=== PATIENT | female | born 1995 | race African-American/Black ===

== ENCOUNTER 2022-10-08 15:46 | Emergency (ER) | payer OTHER ==
--- OUTSIDE RECORDS SUMMARY | 2022-10-08 16:02 | XMS REPORT | Continuity of Care Document ---
:1995 Author Organization [facility] t Address [address] [facility] [address] [place] [address] Care Team Providers Name Role Phone HALLE AHUJA Primary Care Physician Unavailable EMMA ROSALES Attending Clinician Unavailable HALLE AHUJA Attending Clinician Unavailable [facility] Attending Clinician [phone] [facility] Attending Clinician Unavailable Emma Fine Attending Clinician JIGNESH ANDERSON Attending Clinician Unavailable Casimiro Mcrae MD Attending Clinician [phone] Say Cobb MD Attending Clinician Chanelle Bundy MD Attending Clinician LILLIAM ZURITA Attending Clinician Unavailable LILLIAM ZURITA Attending Clinician Unavailable Provider, Flaco Temp Attending Clinician Unavailable Doctor Unassigned, [place] Attending Clinician Unavailable PAMELA CROW Attending Clinician Unavailable KEITH ZHU Attending Clinician Unavailable Ultrasound, Vinicioshruti Attending Clinician Unavailable Keith Zhu MD Attending Clinician MASSIEL PRESTON Attending Clinician Unavailable MASSIEL PRESTON Attending Clinician Unavailable Massiel Preston MD Attending Clinician Airam Eubanks NP Attending Clinician AIRAM EUBANKS Attending Clinician Unavailable JIGNESH ANDERSON Admitting Clinician Unavailable AIRAM EUBANKS Admitting Clinician Unavailable Payers Payer Name Policy Type Policy Number Effective Date Expiration Date Alirio pérez [facility] MARVEL [id number] 2021 00:00:00 MEDICAID PENDING PENDING 2021 00:00:00 [place] [id number] 2018 OUT OF STATE 00:00:00 Problems Condition Condition Condition Status Onset Resolution Last Treating Co mments Source Name Details Category Date Date Treatment Clinician Date Disease Active U nivers care and care and 9-08 ity of exam[place] of Medical lactating lactating Bran ch mother mother Acute Acute Disease Active Univers anemia anemia 8-18 ity of 00:00: [place] [address] Medical Branch Underweigh Underweigh Disease Active 2020-03 U nivers t t 2-20 ity of 00:00: [address] Allergies, Adverse Reactions, Alerts Allergy Allergy Status Severity Reaction(s) Onset Inactive Treating Comm ents Source Name Type Date Date Clinician NO KNOWN Drug Active Univers ALLERGIE Class ity of S [facility] Social History Social Habit Start Date Stop Date Quantity Comments Source Exposure to 2021-11-06 2021-11-16 Not sure [facility] SARS-CoV-2 00:00:00 13:07:00 [facility] (event) [place] Alcohol intake 2021-11-16 2021-11-16 Ex-drinker [facility] 00:00:00 00:00:00 (finding) [facility] Tobacco use and 2021-09-19 2021-09-19 Smokeless tobacco Un iversity of exposure 00:00:00 00:00:00 non-user [facility] Sex Assigned At [birth year] Universit y of 00:00:00 00:00:00 [facility] Smoking Status Start Date Stop Date Source Never smoked tobacco [facility] Medications Ordered Filled Start Stop Current Ordering Indication Dosage Frequency Signature Comments Components Source Medication Medication Date Date Medication? Clinician (SIG) Name Name ascorbic Yes [id number] 500mg Take 1 U nivers acid, 8-17 tablet by ity of vitamin C, 00:00: mouth in [place] 500 mg 00 the Medical tablet morning Branch and 1 tablet in the evening. foLIC acid Yes [id number] 1mg Take 1 Univers 1 mg tablet 8-17 tablet by ity of 00:00: mouth in [place] 00 the Medical morning. Branch Yes [id number] 1{tbl} Take 1 Univers vitamin 8-17 tablet by ity of w/FA tablet 00:00: mouth in [place] 00 the Medical morning. Branch docusate Yes [id number] 200mg Take 2 U nivers 100 mg 8-17 capsules ity of capsule 00:00: by mouth [place] 00 once daily Medical as needed Branch for Constipati on. ferrous Yes [id number] 325mg Take 1 Un noam sulfate 325 8-17 tablet by ity of mg (65 mg [facility]00: [facility] Medical tablet morning Branch and 1 tablet in the evening. ibuprofen Yes [id number] 600mg Take 1 Univers 600 mg 8-17 tablet by ity of tablet 00:00: mouth [place] 00 every 6 Medical (six) Branch hours as needed (Pain). Take with food or milk. Immunizations Ordered Filled Immunization Date Status Comments [facility] e Immunization Name Name TDAP 2021-08-08 Completed [facility] 00:00:00 [facility] SARS-COV-2 COVID-19 2020-12-27 Completed Unive rsity of PFIZER VACCINE 00:00:00 [facility] SARS-COV-2 COVID-19 2020-12-06 Completed Unive rsity of PFIZER VACCINE 00:00:00 [facility] Vital Signs Vital Name Observation Time Observation Value Comments Source Systolic blood 2021-11-16 18:09:00 125 mm[Hg] Univer sity of pressure [facility] Diastolic blood 2021-11-16 18:09:00 67 mm[Hg] Unive rsity of pressure [facility] Heart rate 2021-11-16 18:09:00 88 /min [facility] Body temperature 2021-11-16 18:09:00 36.39 Vera [facility] Respiratory rate 2021-11-16 18:09:00 18 /min [facility] Body height 2021-11-16 18:09:00 167.6 cm [facility] Body weight 2021-11-16 18:09:00 64.184 kg [facility] BMI 2021-11-16 18:09:00 22.84 kg/m2 [facility] Procedures This patient has no known procedures. Encounters Start End Encounter Admission Attending Care Care Encounter Source Date/Time Date/Time Type Type Clinicians Facility Department ID 2021-12-07 2021-12-07 Outpatient Tony ROSALES [facility] [id number] Univers 12:45:00 12:45:00 EMMA grey lewis [facility] 2021-12-07 2021-12-07 Outpatient Tony ROSALES [facility] [id number] Univers 12:45:00 12:45:00 EMMA grey [facility] 2021-11-16 2021-11-16 Outpatient Tony AHUJA [facility] [id number] Univers 13:15:00 13:31:23 HALLE grey [facility] 2021-11-16 2021-11-16 Routine Seymour, [facility] [id number] Univers 13:15:00 13:31:23 Halle Salazar LADLE POURER 350.1.13.10 ity of Visit [facility] [id number] Solitario as MATERNAL [id number] [facility] & CHILD [address] [place] [address] 2021-10-31 2021-10-31 Nurse Visit, [facility] Nurse [facility] 1.2 .840.114 [id number] Univers 08:30:00 09:16:47 Visit Emma Rosales LADLE POURER [id number] ity of REGIONAL [id number] Solitario as MATERNAL [id number] [facility] & CHILD [address] [place] [address] 2021-10-31 2021-10-31 Outpatient Tony ROSALES [facility] [id number] Univers 08:30:00 08:30:00 EMMA grey [facility] 2021-10-22 2021-10-26 Inpatient Linda ANDERSON [facility] SAMMY [id number] Univers 14:47:00 15:07:00 JIGNESH ity of [facility] 2021-10-22 2021-10-26 Hospital [facility] 1 .2.840.114 [id number] Univers 14:47:00 15:07:00 Encounter Jignesh Anderson [id number] ity [facility] [id number] Solitario as [phone] [facility] 134 [place] 2021-10-24 2021-10-24 Surgery ANISH Mcrae 1.2.840.114 [id number] Univers 10:05:00 11:50:00 Casimiro HERNANDEZ 350.1.13.10 it y [facility] 4.2.7.2.686 [place] [phone] [facility] 013 [place] 2021-10-23 2021-10-24 Anesthesia Say Cobb 1.2.840.114 [id number] Univers 21:25:00 11:32:00 Event Chanelle Bundy 350.1.13.10 ity [facility] 4.2.7.2.686 Solitario as [phone] [address] 2021-10-24 2021-10-24 Outpatient R CONNIE [facility] [id number] Univers 11:00:00 11:00:00 ROSFEDERICOA rashardy o f [facility] 2021-10-17 2021-10-17 [facility] 1.2.840.114 [id number] Univers 08:15:00 08:30:00 Acenda R LADLE POURER 350.1.13.10 ity of Visit [facility] [id number] Solitario as MATERNAL [id number] [facility] ical & CHILD [address] [place] [address] 2021-10-17 2021-10-17 Outpatient R CONNIE [facility] [id number] Univers 08:15:00 08:15:00 ROSFEDERICOA ity o f [facility] 2021-10-10 2021-10-10 [facility] 1.2.840.114 [id number] Univers 12:45:00 13:00:00 Roshunda R LADLE POURER 350.1.13.10 ity of Visit REGIONAL 4.2.7.2.686 Solitario as MATERNAL [phone] [facility] & [address] 2021-10-10 2021-10-10 Outpatient R CONNIE [facility] [id number] Univers 12:45:00 12:45:00 ROSHUNDA ity o [facility] 2021-10-10 2021-10-10 [facility] [id number] Univers 12:45:00 12:45:00 ROSCYNDYNDA ity o [facility] 2021-10-04 2021-10-04 Telephone [facility] [id number] Univers 00:00:00 00:00:00 Roscyndynda R LADLE POURER 350.1.13.10 ity of REGIONAL 4.2.7.2.686 Solitario as MATERNAL [id number] [facility] & [address] 2021-10-03 2021-10-03 [facility] [id number] Univers 10:45:00 11:16:50 ACENDA rashardy o [facility] 2021-10-03 2021-10-03 [facility] 1.2.840.114 [id number] Univers 10:45:00 11:16:50 Roshunda R LADLE POURER 350.1.13.10 ity of Visit REGIONAL 4.2.7.2.686 Solitario as MATERNAL [id number] [facility] & [address] 2021-10-03 2021-10-03 [facility] [id number] Univers 10:45:00 11:16:50 ROSHUNDA ity o [facility] 2021-10-03 2021-10-03 [facility] [id number] Univers 10:45:00 10:45:00 ROSHUNDA ity o [facility] 2021-09-20 2021-09-20 Outpatient LILLIAM KAMARA [facility] [id number] Univers 10:45:00 10:45:00 LILLIAM ZURITA [facility] 2021-09-19 2021-09-19 Outpatient R LILLIAM ZURITA [facility] [id number] Univers 10:45:00 11:46:36 LILLIAM ZURITA [facility] 2021-09-19 2021-09-19 Routine Provider, [facility] 1 .2.840.114 [id number] Univers 10:45:00 11:46:36 Lilliam Zurita Maria Luisa LADLE POURER 350.1.13.10 ity of Visit REGIONAL 4.2.7.2.686 Solitario as MATERNAL [id number] [facility] ical & CHILD [address] [place] [address] 2021-09-05 2021-09-05 Routine [facility] 1.2.840.114 [id number] Univers 10:45:00 11:00:00 Roshunda R LADLE POURER 350.1.13.10 ity of Visit [facility] [id number] Solitario as MATERNAL [id number] [facility] ical & CHILD [address] [place] [address] 2021-09-05 2021-09-05 [facility] [id number] Univers 10:45:00 10:45:00 ROSHUNDA ity o [facility] 2021-08-22 2021-08-22 Outpatient Tony ROSALES [facility] [id number] Univers 08:00:00 08:37:40 ROSHUNDA ity o f [facility] 2021-08-22 2021-08-22 [facility] 1.2.840.114 [id number] Univers 08:00:00 08:37:40 Roshunda R LADLE POURER 350.1.13.10 ity of Visit REGIONAL [id number] Solitario as MATERNAL [phone] [facility] & CHILD [address] [place] [address] 2021-08-08 2021-08-08 [facility] [id number] Univers 08:00:00 08:52:58 ROSHUNDA ity o f [facility] 2021-08-08 2021-08-08 Routine [facility] 1.2.840.114 [id number] Univers 08:00:00 08:52:58 Roshunda R LADLE POURER 350.1.13.10 ity of Visit REGIONAL [id number] Solitario as MATERNAL [id number] Med ical & CHILD [address] [place] [address] 2021-08-08 2021-08-08 Outpatient R CONNIE [facility] [id number] Univers 08:00:00 08:00:00 ROSHUNDA ity o f [facility] 2021-07-28 2021-07-28 Orders Doctor ANISH 1.2.840.114 [id number] Univers 00:00:00 00:00:00 Only Unassigned, DAVID 350.1.13.10 ity of [place] [facility] 4.2.7.2.686 Solitario as [phone] [address] 2021-07-20 2021-07-20 Outpatient R PAMELA CROW [facility] [id number] Univers 10:00:00 10:00:00 ity of [facility] 2021-07-19 2021-07-19 Telephone [facility] [id number] Univers 00:00:00 00:00:00 Roshunda R LADLE POURER 350.1.13.10 ity of REGIONAL 4.2.7.2.686 Solitario as MATERNAL [id number] [facility] ica & CHILD [address] [place] [address] 2021-07-18 2021-07-18 Outpatient R CONNIE [facility] [id number] Univers 08:45:00 09:20:22 ROSHUNDA ity o f [facility] 2021-07-18 2021-07-18 Routine [facility] 1.2.840.114 [id number] Univers 08:45:00 09:20:22 Roshunda R LADLE POURER 350.1.13.10 ity of Visit [facility] [id number] Solitario as MATERNAL [id number] [facility] ical & CHILD [address] [place] [address] 2021-07-18 2021-07-18 [facility] [id number] Univers 08:45:00 08:45:00 EMMA mckenna o lewis [facility] 2021-06-22 2021-06-22 Orders Doctor ANISH 1.2.840.114 [id number] Univers 00:00:00 00:00:00 Only Unassigned, DAVID 350.1.13.10 ity of [place] [facility] 4.2.7.2.686 Solitario as [id number] [address] 2021-06-20 2021-06-20 [facility] [id number] Univers 09:30:00 09:58:01 EMMA mckenna o lewis [facility] 2021-06-20 2021-06-20 [facility] 1.2.840.114 [id number] Univers 09:30:00 09:58:01 Lilliannava R LADLE POURER 350.1.13.10 ity of Visit REGIONAL 4.2.7.2.686 Solitario as MATERNAL [id number] Med ical & CHILD [address] [place] [address] 2021-06-20 2021-06-20 [facility] [id number] Univers 08:15:00 08:15:00 ACEKOFIGrieclda saucedo [facility] 2021-06-12 2021-06-12 [facility] [id number] Univers 08:00:00 09:47:43 KEITH mckenna [facility] 2021-06-12 2021-06-12 Vendor Relationship Manager [facility]trasound[facility] 1.2 .840.114 [id number] Univers 08:00:00 09:00:00 Visit AudraKeith Tony LADLE POURER 350.1.13.10 ity of REGIONAL 4.2.7.2.686 Solitario as MATERNAL [id number] Med ical & CHILD [address] [facility] 2021-06-12 2021-06-12 Outpatient P [facility] [id number] Univers 08:00:00 08:00:00 ity [facility] 2021-05-23 2021-05-23 Routine [facility] 1.2.840.114 [id number] Univers 10:30:00 10:45:00 Roshunda R LADLE POURER 350.1.13.10 ity of Visit REGIONAL 4.2.7.2.686 Solitario as MATERNAL [phone] [facility] & CHILD [address] [place] [address] 2021-05-23 2021-05-23 Outpatient R CONNIE [facility] [id number] Univers 10:30:00 10:30:00 ROSCYNDYNDA ity o f [facility] 2021-04-25 2021-04-25 Outpatient R CONNIE [facility] [id number] Univers 10:30:00 11:05:58 ROSNDA itgautam o f [facility] 2021-04-25 2021-04-25 Routine Connie [facility] 1.2.840.114 [id number] Univers 10:30:00 11:05:58 Roshunda R LADLE POURER 350.1.13.10 ity of Visit REGIONAL 4.2.7.2.686 Solitario as MATERNAL [id number] [facility] & CHILD [address] [place] [address] 2021-04-03 2021-04-03 Outpatient P MASSIEL PRESTON [facility] [id number] Univers 09:00:00 09:32:53 MASSIEL PRESTON [facility] 2021-04-03 2021-04-03 Vendor Relationship Manager Ultrasound, [facility] 1.2 .840.114 [id number] Univers 09:00:00 09:30:00 Visit Massiel Preston LADLE POURER 350.1.13.10 ity of REGIONAL 4.2.7.2.686 Solitario as MATERNAL [id number] [facility] & CHILD [address] [place] [address] 2021-04-03 2021-04-03 Hillary Rosales [facility] 1.2.840.114 [id number] Univers 00:00:00 00:00:00 Roshunda R LADLE POURER 350.1.13.10 ity of REGIONAL 4.2.7.2.686 Solitario as MATERNAL [id number] [facility] & CHILD [address] [place] [address] 2021-03-28 2021-03-28 Outpatient Tnoy ROSALES [facility] [id number] Univers 10:15:00 10:40:46 EMMA mckenna o [facility] 2021-03-28 2021-03-28 Routine Halle Ahuja [facility] [id number] [id number] Univers 10:15:00 10:40:46 Lillian Rosalesnava R LADLE POURER 350.1.13.1 0 ity of Visit REGIONAL 4.2.7.2.686 Solitario as MATERNAL [id number] [facility] ical & CHILD [address] [place] [address] 2021-03-28 2021-03-28 Outpatient Tony ROSALES [facility] [id number] Univers 10:15:00 10:15:00 LILLIANNAVA grey [facility] 2021-03-28 2021-03-28 Outpatient Tony ROSALES [facility] [id number] Univers 10:15:00 10:15:00 LILLIANNAVA grey [facility] 2021-03-08 2021-03-08 Telephone [facility] [id number] Univers 00:00:00 00:00:00 Lilliannava R LADLE POURER 350.1.13.10 ity of REGIONAL 4.2.7.2.686 Solitario as MATERNAL [id number] [facility] & [address] 2021-03-06 2021-03-06 [facility] [id number] Univers 00:00:00 00:00:00 Lilliancyndynda R LADLE POURER 350.1.13.10 ity of REGIONAL 4.2.7.2.686 Solitario as MATERNAL [id number] [facility] & CHILD [address] [place] [address] 2021-02-27 2021-02-27 Outpatient Tony ROSALES [facility] [id number] Univers 09:15:00 11:56:21 EMMA mckenna o [facility] 2021-02-27 2021-02-27 Outpatient Tony ROSALES [facility] [id number] Univers 09:45:00 11:56:08 EMMA grey [facility] 2021-02-27 2021-02-27 Initial Connie [facility] 1.2.840.114 [id number] Univers 09:45:00 11:56:08 Roshunda R LADLE POURER 350.1.13.10 ity of Visit [facility] 4.2.7.2.686 Solitario as MATERNAL [id number] Med ical & CHILD [address] [place] [address] 2021-02-27 2021-02-27 Orders Doctor ANISH 1.2.840.114 [id number] Univers 00:00:00 00:00:00 Only Unassigned, DAVID 350.1.13.10 ity of [place] [facility] 4.2.7.2.686 Solitario as [phone] [facility] 009 Branch 2020-03-10 2020-03-10 Emergency [facility] [id number] [id number] Univers 13:11:00 17:48:00 Airam Jacob 350.1.13.10 ity of [place] 4.2.7.2.686 [place] [facility] [phone] [facility] 084 Branch 2020-03-10 2020-03-10 Emergency X [facility] ERT [id number] Univers 13:11:00 17:48:00 AIRAM mckenna of [facility] Results This patient has no known results.
[2022-10-08 17:58] LABS: Specific Gravity > 1.030 (1.005-1.030)
[2022-10-08 18:01] LABS: Specific Gravity > 1.030 (1.005-1.030); Urine Bacteria <20 /HPF (<20); Urine Bilirubin NEGATIVE (Negative); Urine Blood Negative (Negative); Urine Clarity Extremely Turbid (Clear); Urine Color Yellow (Yellow); Urine Glucose NEGATIVE (Negative); Urine Mucus 4+ /HPF (None Seen); Urine Protein 1+ (Negative); Urine RBC <5 /HPF (None Seen); Urine Urobilinogen Normal (Normal); Urine pH 5.5 (5.0-7.0)
[2022-10-08 18:21] LABS: Absolute Lymphocytes (CBC) 1.8 K/uL (0.7-4.9); Hematocrit 36.8 % (36.0-45.0); Lymphocytes % 53.5 % (15.3-44.8); MCV 85.9 fL (80-100); RBC Red Blood Cell Count 4.28 M/uL (3.86-4.86)
[2022-10-08 18:39] LABS: Albumin 4.1 g/dL (3.4-5.0); Bilirubin Total 0.9 mg/dL (0.2-1.0); Potassium 3.8 mEq/L (3.5-5.1); Protein, Total 7.9 g/dL (6.4-8.2)
--- NOTE | 2022-10-08 18:50 | ER ---
Nurse's Notes [facility] Name: Venu Fountain Age: 27 yrs Sex: Female : 1995 Arrival Date: 10/08/2022 Time: 15:46 Bed 15 Private MD: Diagnosis: Lower abdominal pain, unspecified Presentation: 10/08 16:00 Chief complaint: Patient states: LLQ abdominal cramping X2 weeks and also reports black cm10 stools for the last 2 days. Pt states no BM today. Coronavirus screen: Vaccine status: Patient reports receiving the 2nd dose of the covid vaccine. Ebola Screen: No symptoms or risks identified at this time. Initial Sepsis Screen: Does the patient meet any 2 criteria? No. Patient's initial sepsis screen is negative. Does the patient have a suspected source of infection? No. Patient's initial sepsis screen is negative. Risk Assessment: Do you want to hurt yourself or someone else? Patient reports no desire to harm self or others. Onset of symptoms was October 08, 2022. 16:00 Method Of Arrival: Ambulatory cm10 16:00 Acuity: DEIDRE 3 cm10 Historical: - Allergies: 16:03 No Known Allergies; cm10 - Home Meds: 16:03 None [Active]; cm10 - PMHx: 16:03 None; cm10 - PSHx: 16:03 section; cm10 - Immunization history:: Adult Immunizations unknown. - Social history:: Smoking status: Patient denies any tobacco usage or history of. Screenin:30 [facility] ED Fall Risk Assessment (Adult) History of falling in the last 3 months, ko1 including since admission No falls in past 3 months (0 pts) Confusion or Disorientation No (0 pts) Intoxicated or Sedated No (0 pts) Impaired Gait No (0 pts) Mobility Assist Device Used No (0 pt) Altered Elimination No (0 pt) Score/Fall Risk Level 0 - 2 = Low Risk Oriented to surroundings, Maintained a safe environment, Educated pt \T\ family on fall prevention, incl call for assistance when getting out of bed, Assessed \T\ reinforced patient's understanding of fall precautions, Provided non-skid footwear, Hourly rounding (assess needs \T\ fall precautionary measures) done, Used ambulatory aids as needed (educated on \T\ assisted with). Abuse screen: Denies threats or abuse. Denies injuries from another. Nutritional screening: No deficits noted. Tuberculosis screening: No symptoms or risk factors identified. Assessment: 17:30 General: Appears in no apparent distress. comfortable, Behavior is calm, cooperative, ko1 appropriate for age. Pain: Complains of pain in abdomen. Neuro: No deficits noted. Cardiovascular: No deficits noted. Respiratory: No deficits noted. GI: Bowel sounds present X 4 quads. Abd is soft and non tender X 4 quads. : No deficits noted. EENT: No deficits noted. Derm: No deficits noted. Musculoskeletal: No deficits noted. Vital Signs: 16:00 BP 123 / 67; Pulse 77; Resp 18; Temp 98.4(O); Pulse Ox 100% ; Weight 58.97 kg; Height 5 cm10 ft. 7 in. ; Pain 0/10; 18:55 BP 118 / 64; Pulse 72; Resp 16; Pulse Ox 100% ; ko1 16:00 Body Mass Index 20.36 (58.97 kg, 170.18 cm) cm10 16:00 Pain Scale: Adult cm10 ED Course: 15:47 Patient arrived in ED. am2 15:51 Dana Simmons FNP-C [facility] kb 15:51 Aaron Pabon MD is Attending Physician. kb 16:03 Triage completed. cm10 16:03 Arm band placed on Patient placed in waiting room. cm10 17:22 Melissa Paulino, REINA is Primary Nurse. ko1 17:30 Patient has correct armband on for positive identification. Bed in low position. Call ko1 light in reach. Provided Education on: NA. Pulse ox on. NIBP on. Door closed. Noise minimized. 17:30 No provider procedures requiring assistance completed. ko1 18:00 Inserted saline lock: 22 gauge in left antecubital area, using aseptic technique. Blood ko1 collected. 18:10 CBC with Diff Sent. ko1 18:10 CMP Sent. ko1 18:10 Lipase Sent. ko1 18:55 IV discontinued, intact, bleeding controlled, No redness/swelling at site. Pressure ko1 dressing applied. Administered Medications: No medications were administered Medication: 17:30 VIS not applicable for this client. ko1 Outcome: 18:49 Discharge ordered by . kb 19:14 Discharged to home ambulatory, with family. ko1 19:14 Condition: stable 19:14 Discharge instructions given to patient, Instructed on discharge instructions, follow up and referral plans. Demonstrated understanding of instructions, follow-up care. 19:15 Patient left the ED. ko1 Signatures: Dana Simmons, CLOUD OPERATIONS ENGINEER-C CLOUD OPERATIONS ENGINEER-CkDana Swift am2 Melissa Paulino, RN RN ko1 Asia Hernandez RN RN cm10 Corrections: (The following items were deleted from the chart) 19:15 17:30 BP 118 / 64; Pulse 72bpm; Resp 16bpm; Pulse Ox 100%; ko1 ko1
--- NOTE | 2022-10-08 18:50 | EDPHYS ---
Physician Documentation [facility] Name: Venu Fountain Age: 27 yrs Sex: Female : 1995 Arrival Date: 10/08/2022 Time: 15:46 Bed 15 Private MD: ED Physician Aaron Pabon HPI: 10/08 16:04 This 27 yrs old Black Female presents to ER via Ambulatory with complaints of kb Black/Tarry Stools, Abdominal Pain - low. 16:04 The patient presents with abdominal pain in the lower abdomen. Onset: The kb symptoms/episode began/occurred 2 week(s) ago. The symptoms do not radiate. Associated signs and symptoms: Pertinent positives: dark stool, Pertinent negatives: nausea, vomiting, and diarrhea. The symptoms are described as crampy. Modifying factors: The symptoms are alleviated by nothing, the symptoms are aggravated by nothing. Severity of pain: At its worst the pain was mild in the emergency department the pain is unchanged. The patient has not experienced similar symptoms in the past. The patient has not recently seen a physician. Patient presents for abdominal cramps that started 2 weeks ago. States she had some spotting onset of cramping and thought that it was her menstrual cycle but her period never came and the cramps continued. Reports black stools over the past 2 days. Denies fever, nausea, vomiting, diarrhea, constipation. Historical: - Allergies: 16:03 No Known Allergies; cm10 - Home Meds: 16:03 None [Active]; cm10 - PMHx: 16:03 None; cm10 - PSHx: 16:03 section; cm10 - Immunization history:: Adult Immunizations unknown. - Social history:: Smoking status: Patient denies any tobacco usage or history of. ROS: 16:04 Constitutional: Negative for fever, chills, and weight loss. kb 16:04 Abdomen/GI: Positive for abdominal pain, black/tarry stool. 16:04 All other systems are negative. Exam: 16:04 Constitutional: This is a well developed, well nourished patient who is awake, alert, kb and in no acute distress. Head/Face: Normocephalic, atraumatic. ENT: Moist Mucous membranes Cardiovascular: Regular rate and rhythm with a normal S1 and S2. No gallops, murmurs, or rubs. No pulse deficits. Respiratory: Respirations even and unlabored. No increased work of breathing. Talking in full sentences Abdomen/GI: Soft, non-tender. No distention Skin: Warm, dry with normal turgor. Normal color. MS/ Extremity: Pulses equal, no cyanosis. Neurovascular intact. Full, normal range of motion. Neuro: Awake and alert, GCS 15, oriented to person, place, time, and situation. Moves all extremities. Normal gait. Vital Signs: 16:00 BP 123 / 67; Pulse 77; Resp 18; Temp 98.4(O); Pulse Ox 100% ; Weight 58.97 kg; Height 5 cm10 ft. 7 in. ; Pain 0/10; 18:55 BP 118 / 64; Pulse 72; Resp 16; Pulse Ox 100% ; ko1 16:00 Body Mass Index 20.36 (58.97 kg, 170.18 cm) cm10 16:00 Pain Scale: Adult cm10 MDM: 15:58 Patient medically screened. 16:06 Data reviewed: vital signs, nurses notes. kb 18:30 Differential diagnosis: GI Bleed, non-specific abd pain, urinary tract infection. kb 18:49 Counseling: I had a detailed discussion with the patient and/or guardian regarding: the historical points, exam findings, and any diagnostic results supporting the discharge/admit diagnosis, lab results, radiology results, the need for outpatient follow up, a family practitioner, a ice guard inspector, an OB/Gyne specialist, to return to the emergency department if symptoms worsen or persist or if there are any questions or concerns that arise at home. 18:49 I considered the following discharge prescriptions or medication management in the emergency department Antibiotics: At this time antibiotics are not recommended. Test considered but Not performed: CT: CT abd considered, but pt has no abd tenderness, cramping has been ongoing for 2 weeks, afebrile and nontoxic in appearance. Educated on return precautions. Special discussion: Based on the patient's Hx, exam, and Dx evaluation, there is no indication for emergent surgery or inpatient Tx. It is understood by the patient/guardian that if the Sx's persist or worsen they need to return immediately for re-evaluation. 10/08 16:02 Order name: CBC with Diff; Complete Time: 18:28 kb 10/08 16:02 Order name: CMP; Complete Time: 18:45 kb 10/08 16:02 Order name: Lipase; Complete Time: 18:45 kb 10/08 16:02 Order name: Test, Urine; Complete Time: 18:04 kb 10/08 16:02 Order name: Urinalysis w/ reflexes; Complete Time: 18:04 kb 10/08 16:02 Order name: IV Saline Lock; Complete Time: 18:10 kb 10/08 16:02 Order name: Labs collected and sent; Complete Time: 18:10 kb Administered Medications: No medications were administered Disposition: 19:25 I reviewed the patient's care provided by the Advanced Practice Provider and agree with jrJoseline the diagnosis and treatment plan. Disposition Summary: 10/08/22 18:49 Discharge Ordered Location: Home kb Condition: Stable kb Diagnosis - Lower abdominal pain, unspecified kb Followup: kb - With: Emergency Department - When: As needed - Reason: Worsening of condition Followup: kb - With: Private Physician - When: 2 - 3 days - Reason: Recheck today's complaints, Continuance of care, Re-evaluation by your physician Discharge Instructions: - Discharge Summary Sheet kb - Pelvic Pain, Female, [id number] kb - Abdominal Pain, Adult, [id number] kb Forms: - Medication Reconciliation Form kb - Thank You Letter kb - Antibiotic Education kb - Prescription Opioid Use kb - Patient Portal Instructions kb Signatures: Dispatcher [employer] Dana Mcdonald, TRY ON BASTER-C TRY ON BASTER-Aaron Riggins MD MD [email or web address] sAia Hernandez RN RN cm10
[2022-10-08 19:56] VITALS: TEMP 98.4; O2SAT 100
[2022-10-08 20:06] VITALS: BP 118/64
== END 2022-10-08 19:15 | disposition home or self-care (01) ==
LOC: ER 15:46
DX: R10.30 Lower abdominal pain, unspecified (principal)
CPT/HCPCS: 36415; 80053; 81001; 81025; 83690; 85025; 99284

== ENCOUNTER 2023-12-09 09:21 | Emergency (ER) | payer OTHER ==
--- NOTE | 2023-12-09 09:55 | EDPHYS ---
Physician Documentation [facility] Name: Venu Fountain Age: 28 yrs Sex: Female : 1995 Arrival Date: 12/09/2023 Time: 09:21 Bed IW1 Private MD: ED Physician Tylor Knight HPI: 12/08 10:48 This 28 yrs old Black Female presents to ER via Ambulatory with complaints of Rash. ms3 10:48 28-year-old female with no past medical history presents to the emergency department ms3 for rash on left second digit that was noticed today while sleeping. Patient denies pain. Patient denies any alleviating factors.. Historical: - Allergies: 09:44 No Known Allergies; bp - PSHx: 09:44 section; bp - Immunization history:: Adult Immunizations up to date. - Infectious Disease History:: Denies. - Social history:: Smoking status: Patient denies any tobacco usage or history of. ROS: 10:48 Constitutional: Negative for fever, and chills. Neck: Negative for injury, pain, and ms3 swelling, Cardiovascular: Negative for chest pain, and palpitations. Respiratory: Negative for shortness of breath, cough, wheezing, and pleuritic chest pain, Abdomen/GI: Negative for abdominal pain, nausea, vomiting, diarrhea, and constipation, MS/Extremity: Negative for injury and deformity, 10:48 Skin: Positive for rash, Exam: 10:48 Constitutional: This is a well developed, well nourished patient who is awake, alert, ms3 and in no acute distress. Head/Face: Normocephalic, atraumatic. Chest/axilla: Normal chest wall appearance and motion. Nontender with no deformity. Cardiovascular: Regular rate and rhythm with a normal S1 and S2. No gallops, murmurs, or rubs. Normal PMI, no JVD. No pulse deficits. Respiratory: Lungs have equal breath sounds bilaterally, clear to auscultation and percussion. No rales, rhonchi or wheezes noted. No increased work of breathing, no retractions or nasal flaring. Abdomen/GI: Soft, non-tender, with normal bowel sounds. No distension or tympany. No guarding or rebound. No evidence of tenderness throughout. 10:48 Skin: rash can be described as papular, on the Left second finger, Vital Signs: 09:43 BP 121 / 75; Pulse 75; Resp 16; Temp 98; Pulse Ox 98% ; bp MDM: 09:54 Patient medically screened. ms3 10:48 Differential diagnosis: Allergic reaction versus zoster versus scabies. Data reviewed: ms3 vital signs, nurses notes, and as a result, I will discharge patient. Counseling: I had a detailed discussion with the patient and/or guardian regarding the historical points, exam findings, and any diagnostic results supporting the discharge/admit diagnosis, the need for outpatient follow up, to return to the emergency department if symptoms worsen or persist or if there are any questions or concerns that arise at home. Special discussion: I discussed with the patient/guardian in detail that at this point there is no indication for admission to the hospital. It is understood, however, that if the symptoms persist or worsen the patient needs to return immediately for re-evaluation. ED course: Discussed physical exam findings with patient. Patient to follow-up with Dr. Wang in 2 to 3 days. Patient understands and agrees with plan. All questions were answered. Patient given prescription for hydrocortisone cream. Return precautions discussed include worsening symptoms, or any other concerns. Unlikely zoster as no vesicles or erythema and the region of the rash. Less likely scabies as rash is not itching unless touched.. Administered Medications: No medications were administered Disposition Summary: 12/09/23 09:55 Discharge Ordered Notes: Location: Home ms3 Condition: Stable ms3 Diagnosis - Rash and other nonspecific skin eruption ms3 Followup: ms3 - With: Mao Wang DO - When: 2 - 3 days - Reason: Recheck today's complaints Discharge Instructions: - Discharge Summary Sheet ms3 - Rash, Adult ms3 Forms: - Medication Reconciliation Form ms3 - Antibiotic Education ms3 - Prescription Opioid Use ms3 - Patient Portal Instructions ms3 - Leadership Thank You Letter ms3 - Work release form cc6 Prescriptions: - Hydrocortisone 0.5 % Topical cream - apply 1 application TOPICAL route every 8 hours As needed; 30 gram; Refills: 0, ms3 Product Selection Permitted Signatures: Jacob Carter, RN RN Tylor Schrader DO DO ms3
--- NOTE | 2023-12-09 09:55 | ER ---
Nurse's Notes [facility] Name: Venu Fountain Age: 28 yrs Sex: Female : 1995 Arrival Date: 12/09/2023 Time: 09:21 Bed IW1 Private MD: Diagnosis: Rash and other nonspecific skin eruption Presentation: 12/08 09:43 Chief complaint: Patient states: RASH ON LEFT 2ND FINGER. Coronavirus screen: At this bp time, the client does not indicate any symptoms associated with coronavirus-19. Ebola Screen: No symptoms or risks identified at this time. Initial Sepsis Screen: Does the patient meet any 2 criteria? No. Patient's initial sepsis screen is negative. Does the patient have a suspected source of infection? No. Patient's initial sepsis screen is negative. Risk Assessment: Do you want to hurt yourself or someone else? Patient reports no desire to harm self or others. Onset of symptoms is unknown. 09:43 Method Of Arrival: Ambulatory bp 09:43 Acuity: DEIDRE 5 bp Triage Assessment: 09:44 General: Appears in no apparent distress. Behavior is calm, cooperative, appropriate bp for age. Pain: Denies pain. Historical: - Allergies: 09:44 No Known Allergies; bp - PSHx: 09:44 section; bp - Immunization history:: Adult Immunizations up to date. - Infectious Disease History:: Denies. - Social history:: Smoking status: Patient denies any tobacco usage or history of. Screenin:52 [facility] ED Fall Risk Assessment (Adult) History of falling in the last 3 months, iw including since admission No falls in past 3 months (0 pts) Confusion or Disorientation No (0 pts) Intoxicated or Sedated No (0 pts) Impaired Gait No (0 pts) Mobility Assist Device Used No (0 pt) Altered Elimination No (0 pt) Score/Fall Risk Level 0 - 2 = Low Risk Oriented to surroundings. Abuse screen: Denies threats or abuse. Denies injuries from another. Nutritional screening: No deficits noted. Tuberculosis screening: No symptoms or risk factors identified. Assessment: 10:30 General: Appears in no apparent distress. Behavior is calm, cooperative. Pain: Denies iw pain. Neuro: Level of Consciousness is awake, alert, obeys commands, Oriented to person, place, time, situation, Moves all extremities. Full function. Cardiovascular: Patient's skin is warm and dry. Respiratory: Respiratory effort is even, unlabored, Respiratory pattern is regular. Derm: Skin is intact, is healthy with good turgor. Musculoskeletal: Range of motion: intact in all extremities. Vital Signs: 09:43 BP 121 / 75; Pulse 75; Resp 16; Temp 98; Pulse Ox 98% ; bp ED Course: 09:26 Patient arrived in ED. mg5 09:30 Tylor Knight DO is Attending Physician. ms3 09:44 Triage completed. bp 09:44 Arm band placed on. bp 09:54 Mao Wang DO is Referral Physician. ms3 10:40 Patient has correct armband on for positive identification. Provided Education on: . iw 10:52 No provider procedures requiring assistance completed. Patient did not have IV access iw during this emergency room visit. 10:53 Stephy Casper, RN is Primary Nurse. iw Administered Medications: No medications were administered Medication: 10:30 VIS not applicable for this client. iw Outcome: 09:55 Discharge ordered by MD. ms3 10:52 Discharged to home ambulatory, iw 10:52 Condition: good 10:52 Discharge instructions given to patient, Instructed on discharge instructions, follow up and referral plans. medication usage, Demonstrated understanding of instructions, follow-up care, medications, Prescriptions given X 1, 10:53 Patient left the ED. iw Signatures: Stephy Casper, RN RN iw Jacob Carter RN RN bp Tylor Knight DO DO ms3 Noa Awad mg5
[2023-12-09 10:57] VITALS: BP 121/75; TEMP 98; O2SAT 98
== END 2023-12-09 10:53 | disposition home or self-care (01) ==
LOC: ER 09:21
DX: R21 Rash and other nonspecific skin eruption (principal)
CPT/HCPCS: 99283

== ENCOUNTER 2024-05-21 06:49 | Emergency (ER) | payer OTHER, SELFPAY ==
--- OUTSIDE RECORDS SUMMARY | 2024-05-21 06:52 | XMS REPORT | Continuity of Care Document ---
Author Name Unknown Address [address] [facility] [address] [place] [address] [facility] [place] Address [address] 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 Name Role Phone Emma Fine Primary Care Physician Un available Emma Fine Attending Clinician Unava ilable EMMA ROASLES Attending Clinician Unavailab HALLE Cuba Attending Clinician Unavail able Halle Peres Attending Clinician + Visit, [facility] Nurse Attending Clinician Unava ilable JIGNESH ANDERSON Attending Clinician Unavailable Casimiro Mcrae MD Attending Clinician + Say Cobb MD Attending Clinician [phone] Chanelle Bundy MD Attending Clinician +[phone] LILLIAM ZURITA Attending Clinician UnavailLILLIAM Peralta Attending Clinician Unavailtd e Provider, [facility] Attending Clinician Serena vailable Doctor Unassigned, [place] Attending Clinician U PAMELA Freeman Attending Clinician Unavailable KEITH ZHU Attending Clinician Unavailable Ultrasound, Chelsea Attending Clinician UnavailKeith Werner MD Attending Clinician +[phone] MASSIEL PRESTON Attending Clinician Unavailable MASSIEL PRESTON Attending Clinician Unavailable Massiel Preston MD Attending Clinician Airam Eubanks NP Attending Clinician AIRAM EUBANKS Attending Clinician Unavailable JIGNESH ANDERSON Admitting Clinician Unavailable AIRAM EUBANKS Admitting Clinician Unavailable Payers Payer Name Policy Type Policy Number Effective Date Expirati on Date Source MEDICAID PENDING PENDING 2021 00:00:00 [employer] [place] - OUT OF STATE [id number] 2018 00:00:00 Problems Condition Name Condition Details Condition Category Status Onset Date Resolution Date Last Treatment Date Treating Clinician Comments Source care and examinatio n of lactating mother care and examinatio n of lactating mother Disease Active 11-16 00:00: 00 [facility] Acute anemia Acute anemia Disease Active 10-26 00:00: 00 [facility] Underweigh t Underweigh t Disease Active 2020-03 00:00: 00 [facility] Allergies, Adverse Reactions, Alerts Allergy Name Allergy Type Status Severity Reaction(s) Onset Date Inactive Date Treating Clinician Comments Source NO KNOWN ALLERGIE S Drug Class Active [facility] Social History Social Habit Start Date Stop Date Quantity Comments Source Sexual orientation U [facility] ASSERTION [facility] Exposure to SARS-CoV-2 (event) 2021-11-06 00:00:00 2021-11-16 13:07:00 Not sure [facility] History of Social function 2021-11-16 00:00:00 2021-11-16 00:00:00 [facility] Tobacco use and exposure 2021-02-27 00:00:00 2021-02-27 00:00:00 Smokeless tobacco non-user [facility] Alcohol intake 2021-02-27 00:00:00 2021-02-27 00:00:00 Ex-drinker (finding) [facility] Sex Assigned At 1995 00:00:00 1995 00:00:00 [facility] Smoking Status Start Date Stop Date Source Never smoked tobacco [facility] Medications Ordered Medication Name Filled Medication Name Start Date Stop Date Current Medication? Ordering Clinician Indication Dosage Frequency Signature (SIG) Comments Components Source ascorbic acid, vitamin C, 500 mg tablet 10-25 00:00: 00 Yes [id number] 500mg Take 1 tablet by mouth in the morning and 1 tablet in the evening. [facility] foLIC acid 1 mg tablet 10-25 00:00: 00 Yes [id number] 1mg Take 1 tablet by mouth in the morning. [facility] vitamin w/FA tablet 10-25 00:00: 00 Yes [id number] 1{tbl} Take 1 tablet by mouth in the morning. [facility] docusate 100 mg capsule 10-25 00:00: 00 Yes [id number] 200mg Take 2 capsules by mouth once daily as needed for Constipati on. [facility] ferrous sulfate 325 mg (65 mg iron) tablet 10-25 00:00: 00 Yes [id number] 325mg Take 1 tablet by mouth in the morning and 1 tablet in the evening. [facility] ibuprofen 600 mg tablet 10-25 00:00: 00 Yes [id number] 600mg Take 1 tablet by mouth every 6 (six) hours as needed (Pain). Take with food or milk. [facility] vitamin w/FA tablet 10-25 00:00: 00 Yes [id number] 1{tbl} Take 1 tablet by mouth in the morning. [facility] vit 33-iron-fol ic-dha (SELECT-OB + DHA) 29 mg iron-1 mg -250 mg combo pack 2020-03 2-27 00:00: 00 10-25 00:00 :00 No [id number] 1{packe t} Take 1 Packet by mouth daily. [facility] Immunizations Ordered Immunization Name Filled Immunization Name Date Status Comments Source TDAP 2021-08-08 00:00:00 Completed [facility] SARS-COV-2 COVID-19 PFIZER VACCINE 2020-12-27 00:00:00 Completed [facility] SARS-COV-2 COVID-19 PFIZER VACCINE 2020-12-06 00:00:00 Completed [facility] SARS-COV-2 COVID-19 PFIZER VACCINE Unknown Completed [facility] TDAP Unknown Completed [facility] SARS-COV-2 COVID-19 PFIZER VACCINE Unknown Completed [facility] TDAP Unknown Completed [facility] SARS-COV-2 COVID-19 PFIZER VACCINE Unknown Completed [facility] SARS-COV-2 COVID-19 PFIZER VACCINE Unknown Completed [facility] Vital Signs Vital Name Observation Time Observation Value Comments S ource Systolic blood pressure 2021-11-16 18:09:00 125 mm[Hg] [place] [facility] Diastolic blood pressure 2021-11-16 18:09:00 67 mm[Hg] [facility] Heart rate 2021-11-16 18:09:00 88 /min [facility] Body temperature 2021-11-16 18:09:00 36.39 Vera [facility] Respiratory rate 2021-11-16 18:09:00 18 /min [facility] Body height 2021-11-16 18:09:[address] [facility] Body weight 2021-11-16 18:09:[address] [facility] BMI 2021-11-16 18:09:00 22.84 kg/m2 [facility] Encounters Start Date/Time End Date/Time Encounter Type Admission Type Attending [facility] Care Facility Care Department Encounter ID Source 2023-12-10 14:36:53 2023-12-10 14:36:53 Outpatient SFA SFA [id number] Delvin Peña Priyank 2023-12-09 15:35:04 2023-12-09 15:35:04 Outpatient SFA SFA [id number] Delvin Peña Priyank 2022-09-22 00:00:00 2022-09-22 00:00:00 Patient Secure Emma Cooper [facility] PROVIDER EDUCATION SPECIALIST [facility] MATERNAL & CHILD [facility] [id number] 350.1.13.10 4.2.7.2.686 [id number] [facility] 2021-12-07 12:45:00 2021-12-07 12:45:00 Outpatient R EMMA ROSALES [facility] [id number] [facility] 2021-12-07 12:45:00 2021-12-07 12:45:00 Outpatient R ROSALES, EMMA [facility] [id number] [facility] 2021-11-16 13:15:00 2021-11-16 13:31:23 Outpatient R HALLE AHUJA [facility] [id number] [facility] 2021-11-16 13:15:00 2021-11-16 13:31:23 Routine Visit Halle Ahuja [facility] PROVIDER EDUCATION SPECIALIST [facility] & CHILD [facility] [id number] 350.1.13.10 4.2.7.2.686 [id number] [facility] 2021-11-15 00:00:00 2021-11-15 00:00:00 Patient Secure Msg Emma Rosales [facility] PROVIDER EDUCATION SPECIALIST [facility] & CHILD [facility] 1.2.840.114 350.1.13.10 4.2.7.2.686 [id number] [facility] 2021-10-31 08:30:00 2021-10-31 09:16:47 Nurse Visit Visit, Ang-Rmchp Nurse Emma Rosales [facility] [id number] 350.1.13.10 4.2.7.2.686 [id number] [facility] 2021-10-31 08:30:00 2021-10-31 08:30:00 Outpatient R EMMA ROSALES [facility] [id number] [facility] 2021-10-22 14:47:00 2021-10-26 15:07:00 Inpatient P JIGNESH ANDERSON [facility] SAMMY [id number] [facility] 2021-10-22 14:47:00 2021-10-26 15:07:00 Hospital En[facility] 1.2.840.114 350.1.13.10 4.2.7.2.686 [id number] [facility] 2021-10-24 10:05:00 2021-10-24 11:50:00 [facility] 1.2.840.114 350.1.13.10 4.2.7.2.686 [id number] [facility] 2021-10-23 21:25:00 2021-10-24 11:32:00 [facility] 1.2840.114 350.1.13.10 4.2.7.2.686 [id number] [facility] 2021-10-24 11:00:00 2021-10-24 11:00:00 Outpatient R ROSALESEMMA [facility] [id number] [facility] 2021-10-17 08:15:00 2021-10-17 08:30:00 Routine Visit Emma Rosales [facility] PROVIDER EDUCATION SPECIALIST [facility] MATERNAL & CHILD [facility] 1.840.114 350.1.13.10 4.2.7.2.686 [id number] [facility] 2021-10-17 08:15:00 2021-10-17 08:15:00 Outpatient R ROSALESEMMA [facility] [id number] [facility] 2021-10-10 12:45:00 2021-10-10 13:00:00 Routine Visit Emma Rosales [facility] PROVIDER EDUCATION SPECIALIST [facility] MATERNAL & CHILD [facility] 1.2840.114 350.1.13.10 4.2.7.2.686 [id number] [facility] 2021-10-10 12:45:00 2021-10-10 12:45:00 Outpatient EMMA LLANOS [facility] [id number] [facility] 2021-10-10 12:45:00 2021-10-10 12:45:00 Outpatient EMMA LLANOS [facility] [id number] [facility] 2021-10-04 00:00:00 2021-10-04 00:00:00 Telephone Emma Rosales [facility] PROVIDER EDUCATION SPECIALIST [facility] MATERNAL & CHILD [facility] 1.2.840.114 350.1.13.10 4.2.7.2.686 [id number] [facility] 2021-10-03 10:45:00 2021-10-03 11:16:50 Outpatient EMMA LLANOS [facility] [id number] [facility] 2021-10-03 10:45:00 2021-10-03 11:16:50 Routine Visit Emma Rosales [facility] PROVIDER EDUCATION SPECIALIST [facility] & CHILD [facility] 1.2.840.114 350.1.13.10 4.2.7.2.686 [id number] [facility] 2021-10-03 10:45:00 2021-10-03 11:16:50 Outpatient EMMA LLANOS [facility] [id number] [facility] 2021-10-03 10:45:00 2021-10-03 10:45:00 Outpatient LILLIAN LLANOSZAID [facility] [id number] [facility] 2021-09-20 10:45:00 2021-09-20 10:45:00 Outpatient LILLIAM KAMARA EMILY [facility] [id number] [facility] 2021-09-19 10:45:00 2021-09-19 11:46:36 Outpatient LILLIAM KAMARA EMILY [facility] [id number] [facility] 2021-09-19 10:45:00 2021-09-19 11:46:36 Routine Visit Provider, Lilliam Randle [facility] PROVIDER EDUCATION SPECIALIST [facility] MATERNAL & CHILD [facility] 1..114 350.1.13.10 4.2.7.2.686 [id number] [facility] 2021-09-05 10:45:00 2021-09-05 11:00:00 Routine Visit Salomon Rosalesjv Jimenez [facility] PROVIDER EDUCATION SPECIALIST [facility] & CHILD [facility] 1..114 350.1.13.10 4.2.7.2.686 [id number] [facility] 2021-09-05 10:45:00 2021-09-05 10:45:00 Outpatient R ROSALESEMMA [facility] [id number] [facility] 2021-08-22 08:00:00 2021-08-22 08:37:40 Outpatient R CONNIE EMMA [facility] [id number] [facility] 2021-08-22 08:00:00 2021-08-22 08:37:40 Routine Visit Lillian Rosaleszaid Jimenez [facility] PROVIDER EDUCATION SPECIALIST [facility] & CHILD [facility] ..114 350.1.13.10 4.2.7.2.686 [id number] [facility] 2021-08-08 08:00:00 2021-08-08 08:52:58 Outpatient R CONNIE EMMA [facility] [id number] [facility] 2021-08-08 08:00:00 2021-08-08 08:52:58 Routine Visit Lillian Rosaleswilbertirinajv Jimenez [facility] PROVIDER EDUCATION SPECIALIST [facility] MATERNAL & CHILD [facility] 1.84.114 350.1.13.10 4.2.7.2.686 [id number] [facility] 2021-08-08 08:00:00 2021-08-08 08:00:00 Outpatient R EMMA ROSALES [facility] [id number] [facility] 2021-07-28 00:00:00 2021-07-28 00:00:00 Orders Only Doctor Unassigned, [place] [facility] 1.114 350.1.13.10 4.2.7.2.686 [id number] [facility] 2021-07-20 10:00:00 2021-07-20 10:00:00 Outpatient PAMELA OMALLEY [facility] [id number] [facility] 2021-07-19 00:00:00 2021-07-19 00:00:00 Telephone Emma Rosales [facility] PROVIDER EDUCATION SPECIALIST [facility] & CHILD [facility] 1..114 350.1.13.10 4.2.7.2.686 [id number] 107 [id number] [facility] 2021-07-18 08:45:00 2021-07-18 09:20:22 Outpatient EMMA LLANOS [facility] [id number] [facility] 2021-07-18 08:45:00 2021-07-18 09:20:22 Routine Visit Emma Rosales [facility] PROVIDER EDUCATION SPECIALIST [facility] & CHILD [facility] 1..114 350.1.13.10 4.2.7.2.686 [id number] [facility] 2021-07-18 08:45:00 2021-07-18 08:45:00 Outpatient EMMA LLANOS [facility] [id number] [facility] 2021-06-22 00:00:00 2021-06-22 00:00:00 Orders Only Doctor Unassigned, [place] [facility] 1..114 350.1.13.10 4.2.7.2.686 [id number] [facility] 2021-06-22 00:00:00 2021-06-22 00:00:00 Patient Secure Msg Rosales, Emma [facility] PROVIDER EDUCATION SPECIALIST [facility] & CHILD [facility] 1..840.114 350.1.13.10 4.2.7.2.686 [id number] [facility] 2021-06-20 09:30:00 2021-06-20 09:58:01 Outpatient R EMMA ROSALES [facility] [id number] [facility] 2021-06-20 09:30:00 2021-06-20 09:58:01 Routine Visit Emma Rosales [facility] PROVIDER EDUCATION SPECIALIST [facility] & CHILD [facility] 1..840.114 350.1.13.10 4.2.7.2.686 [id number] [facility] 2021-06-20 08:15:00 2021-06-20 08:15:00 Outpatient R EMMA ROSALES [facility] [id number] [facility] 2021-06-12 08:00:00 2021-06-12 09:47:43 Outpatient KEITH BAER [facility] [id number] [facility] 2021-06-12 08:00:00 2021-06-12 09:00:00 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 1..840.114 350.1.13.10 4.2.7.2.686 [id number] [facility] 2021-06-12 08:00:00 2021-06-12 08:00:00 Outpatient P [facility] [id number] [facility] 2021-05-23 10:30:00 2021-05-23 10:45:00 Routine Visit Emma Rosales [facility] PROVIDER EDUCATION SPECIALIST [facility] & CHILD [facility] 1..840.114 350.1.13.10 4.2.7.2.686 [id number] [facility] 2021-05-23 10:30:00 2021-05-23 10:30:00 Outpatient R EMMA ROSALES [facility] [id number] [facility] 2021-04-27 00:00:00 2021-04-27 00:00:00 Patient Secure Msg Doctor Unassigned, [place]ning [facility] PROVIDER EDUCATION SPECIALIST [facility] & CHILD [facility] 1..840.114 350.1.13.10 4.2.7.2.686 [id number] [facility] 2021-04-25 10:30:00 2021-04-25 11:05:58 Outpatient R ACE ROSALESNATALIIA [facility] [id number] [facility] 2021-04-25 10:30:00 2021-04-25 11:05:58 Routine Visit Emma Rosales [facility] PROVIDER EDUCATION SPECIALIST [facility] & CHILD [facility] ..840.114 350.1.13.10 4.2.7.2.686 [id number] [facility] 2021-04-03 09:00:00 2021-04-03 09:32:53 Outpatient P MASSIEL PRESTON SHANNON [facility] [id number] [facility] 2021-04-03 09:00:00 2021-04-03 09:30:00 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 Ultrasound, Massiel Lerma [facility] PROVIDER EDUCATION SPECIALIST [facility] & CHILD [facility] ..840.114 350.1.13.10 4.2.7.2.686 [id number] [facility] 2021-04-03 00:00:00 2021-04-03 00:00:00 Abstract Emma Rosales [facility] PROVIDER EDUCATION SPECIALIST [facility] & CHILD [facility] 1.2.840.114 350.1.13.10 4.2.7.2.686 [id number] [facility] 2021-03-28 10:15:00 2021-03-28 10:40:46 Outpatient EMMA LLANOS [facility] [id number] [facility] 2021-03-28 10:15:00 2021-03-28 10:40:46 Routine Visit Halle AhujaeEmma [facility] PROVIDER EDUCATION SPECIALIST [facility] MATERNAL & CHILD [facility] 1.2840.114 350.1.13.10 4.2.7.2.686 [id number] [facility] 2021-03-28 10:15:00 2021-03-28 10:15:00 Outpatient ACE LLANOSNATALIIA [facility] [id number] [facility] 2021-03-28 10:15:00 2021-03-28 10:15:00 Outpatient ACE LLANOSNATALIIA [facility] [id number] [facility] 2021-03-08 00:00:00 2021-03-08 00:00:00 Telephone RosalesEmma [facility] PROVIDER EDUCATION SPECIALIST [facility] MATERNAL & CHILD [facility] 1.2840.114 350.1.13.10 4.2.7.2.686 [id number] [facility] 2021-03-06 00:00:00 2021-03-06 00:00:00 Telephone Salomon Rosalesjv Jimenez [facility] PROVIDER EDUCATION SPECIALIST [facility] & CHILD [facility] 1.2.840.114 350.1.13.10 4.2.7.2.686 [id number] [facility] 2021-02-27 09:15:00 2021-02-27 11:56:21 Outpatient Tony ROSALES EMMA [facility] [id number] [facility] 2021-02-27 09:45:00 2021-02-27 11:56:08 Outpatient R CONNIE EMMA [facility] [id number] [facility] 2021-02-27 09:45:00 2021-02-27 11:56:08 Initial Visit Emma Rosales Tony [facility] PROVIDER EDUCATION SPECIALIST [facility] MATERNAL & CHILD [facility] 1.2.840.114 350.1.13.10 4.2.7.2.686 [id number] [facility] 2021-02-27 00:00:00 2021-02-27 00:00:00 Orders Only Doctor Unassigned, [place] [facility] 1.2.840.114 350.1.13.10 4.2.7.2.686 [id number] [facility] 2020-03-10 13:11:00 2020-03-10 17:48:00 Emergency Airam Eubanks [facility] 1.2840.114 350.1.13.10 4.2.7.2.686 [id number] [facility] 2020-03-10 13:11:00 2020-03-10 17:48:00 Emergency X AIRAM EUBANKS [facility] ERT [id number] [facility] Results Test Description Test Time Test Comments Results Result Co mments Source
[2024-05-21 07:46] LABS: Influenza A Ag Negative; Influenza B Ag Negative; SARS-CoV-2 Antigen Rapid Res Negative (Negative)
--- NOTE | 2024-05-21 07:49 | EDPHYS ---
Physician Documentation [facility] Name: Venu Fountain Age: 28 yrs Sex: Female : 1995 Arrival Date: 05/21/2024 Time: 06:49 Bed 6 Private MD: ED Physician Preston Cook HPI: 05/21 07:28 This 28 yrs old Black Female presents to ER via Ambulatory with complaints of Flu rn Symptoms. 07:28 The patient or guardian reports flu symptoms, low-grade fever, myalgias. Onset: The rn symptoms/episode began/occurred 2 day(s) ago. Severity of symptoms: At their worst the symptoms were mild. Modifying factors: The symptoms are alleviated by nothing, the symptoms are aggravated by nothing. The patient has experienced similar episodes in the past. Patient reports sore throat and congestion with mild cough that began 2 days ago. 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 Reports subjective fever and myalgias. No shortness of breath. No hemoptysis. No vomiting or diarrhea.. 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 - Infectious Disease History:: Denies. Denies. - Social history:: Smoking status: Patient denies any tobacco usage or history of. Smoking status: Patient denies any tobacco usage or history of. Patient/guardian denies using alcohol, street drugs. - Family history:: not pertinent. - Hospitalizations: : No recent hospitalization is reported. ROS: 07:28 Constitutional: Positive for fever and myalgia ENT: Positive for congestion and sore rn throat Cardiovascular: Negative for chest pain, palpitations, and edema, Respiratory: Positive for cough, negative for shortness of breath or hemoptysis Abdomen/GI: Negative for abdominal pain, nausea, vomiting, diarrhea, and constipation, Exam: 07:28 Constitutional: This is a well developed, well nourished patient who is awake, alert, rn and in no acute distress. ENT: Mild pharyngeal erythema, no exudate. No stridor. Uvula midline. Tender anterior cervical lymphadenopathy present. No meningismus Cardiovascular: Regular rate and rhythm . No pulse deficits. Respiratory: No increased work of breathing, no retractions or nasal flaring. Vital Signs: 06:54 BP 123 / 78; Pulse 87; Resp 17 S; Temp 98.2(O); Pulse Ox 97% on R/A; Weight 58.97 kg; ha1 Height 5 ft. 6 in. ; 07:24 BP 120 / 76; Pulse 100; Resp 18; Temp 98.3; Pulse Ox 100% ; Pain 8/10; bm8 06:54 Body Mass Index 20.98 (58.97 kg, 167.64 cm) ha1 07:24 Pain Scale: Adult bm8 [place] Coma Score: 07:24 Eye Response: spontaneous(4). Motor Response: obeys commands(6). Verbal Response: bm8 oriented(5). Total: 15. MDM: 07:01 Medical Screening Exam initiated rn 07:48 Differential Diagnosis: Influenza Upper Respiratory Infection Sinusitis Pharyngitis rn Viral Syndrome. Data reviewed: vital signs, nurses notes, and as a result, I will discharge patient. Counseling: I had a detailed discussion with the patient and/or guardian regarding the historical points, exam findings, and any diagnostic results supporting the discharge/admit diagnosis, the need for outpatient follow up, to return to the emergency department if symptoms worsen or persist or if there are any questions or concerns that arise at home. Counseling: I had a detailed discussion with the patient and/or guardian regarding lab results. Special discussion: I discussed with the patient/guardian in detail that at this point there is no indication for admission to the hospital. It is understood, however, that if the symptoms persist or worsen the patient needs to return immediately for re-evaluation. 05/21 07:08 Order name: COVID-19 Ag + Flu A+B Ag; Complete Time: 07:47 rn 05/21 07:08 Order name: Group A Streptococcus Rapid; Complete Time: 07:39 rn Administered Medications: No medications were administered Disposition Summary: 05/21/24 07:49 Discharge Ordered Notes: Location: Home rn Problem: new rn Symptoms: have improved rn Condition: Stable rn Diagnosis - Streptococcal pharyngitis rn Followup: rn - With: Private Physician - When: As needed - Reason: Recheck today's complaints, Re-evaluation by your physician Discharge Instructions: - Discharge Summary Sheet rn - Strep Throat, Adult rn Forms: - Medication Reconciliation Form rn - Antibiotic rehab rn - Prescription Opioid Use rn - Patient Portal Instructions rn - Leadership Thank You Letter rn - Work release form aa5 Prescriptions: - Augmentin 875-125 mg Oral Tablet - take 1 tablet ORAL route every 12 hours for 10 days; 20 tablet; Refills: 0, rn Product Selection Permitted Signatures: Dispatcher [employer] EDMS Preston Cook MD MD rn Ayala, Heidy RN RN ha1 Taye Almeida RN RN bm8
--- NOTE | 2024-05-21 07:49 | ER ---
Nurse's Notes [facility] Name: Venu Fountain Age: 28 yrs Sex: Female : 1995 Arrival Date: 05/21/2024 Time: 06:49 Bed 6 Private MD: Diagnosis: Streptococcal pharyngitis Presentation: 05/21 06:54 Chief complaint: Patient states: sore throat and body aches. ha1 06:54 Coronavirus screen: Client denies travel out of the [place] in the last 14 days. Ebola ha1 Screen: No symptoms or risks identified at this time. Initial Sepsis Screen: Does the patient meet any 2 criteria? No. Patient's initial sepsis screen is negative. Does the patient have a suspected source of infection? No. Patient's initial sepsis screen is negative. Risk Assessment: Do you want to hurt yourself or someone else? Patient reports no desire to harm self or others. Onset of symptoms was May 21, 2024. 06:54 Method Of Arrival: Ambulatory ha1 06:54 Acuity: DEIDRE 4 ha1 Triage Assessment: 06:54 General: Appears comfortable, Behavior is calm, cooperative. Pain: Complains of pain in ha1 sore throat Pain currently is 8 out of 10 on a pain scale. Quality of pain is described as burning. Neuro: Level of Consciousness is awake, alert, obeys commands, Oriented to person, place, time, situation. Cardiovascular: Capillary refill < 3 seconds Patient's skin is warm and dry. Respiratory: Airway is patent Respiratory effort is even, unlabored, Respiratory pattern is regular, symmetrical. GI: No signs and/or symptoms were reported involving the gastrointestinal system. Derm: Skin is pink, warm \T\ dry. 07:22 General: Appears in no apparent distress. comfortable, Behavior is calm, cooperative, bm8 appropriate for age. Pain: Complains of pain in throat Pain currently is 8 out of 10 on a pain scale. Quality of pain is described as burning. EENT: Throat is reddened has enlarged tonsils bilaterally with gag reflex present. Neuro: Level of Consciousness is awake, alert, obeys commands, Oriented to person, place, time, situation, Appropriate for age. Cardiovascular: No deficits noted. Capillary refill < 3 seconds in bilateral fingers Patient's skin is warm and dry. Respiratory: Airway is patent Trachea midline Respiratory effort is even, unlabored, Respiratory pattern is regular, symmetrical. GI: No signs and/or symptoms were reported involving the gastrointestinal system. : No signs and/or symptoms were reported regarding the genitourinary system. Derm: No deficits noted. No signs and/or symptoms reported regarding the dermatologic system. Musculoskeletal: No deficits noted. No signs and/or symptoms reported regarding the musculoskeletal system. 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 - Infectious Disease History:: Denies. Denies. - Social history:: Smoking status: Patient denies any tobacco usage or history of. Smoking status: Patient denies any tobacco usage or history of. Patient/guardian denies using alcohol, street drugs. - Family history:: not pertinent. - Hospitalizations: : No recent hospitalization is reported. Screenin:24 [facility] ED Fall Risk Assessment (Adult) History of falling in the last 3 months, bm8 including since admission No falls in past 3 months (0 pts) Confusion or Disorientation No (0 pts) Intoxicated or Sedated No (0 pts) Impaired Gait No (0 pts) Mobility Assist Device Used No (0 pt) Altered Elimination No (0 pt) Score/Fall Risk Level 0 - 2 = Low Risk Oriented to surroundings, Maintained a safe environment, Educated pt \T\ family on fall prevention, incl call for assistance when getting out of bed, Assessed \T\ reinforced patient's understanding of fall precautions, Hourly rounding (assess needs \T\ fall precautionary measures) done, Used ambulatory aids as needed (educated on \T\ assisted with), Used gait belt as appropriate. Abuse screen: Denies threats or abuse. Nutritional screening: No deficits noted. Tuberculosis screening: No symptoms or risk factors identified. Assessment: 07:24 Reassessment: see triage assessment. bm8 Vital Signs: 06:54 BP 123 / 78; Pulse 87; Resp 17 S; Temp 98.2(O); Pulse Ox 97% on R/A; Weight 58.97 kg; ha1 Height 5 ft. 6 in. ; 07:24 BP 120 / 76; Pulse 100; Resp 18; Temp 98.3; Pulse Ox 100% ; Pain 8/10; bm8 06:54 Body Mass Index 20.98 (58.97 kg, 167.64 cm) ha1 07:24 Pain Scale: Adult bm8 [place] Coma Score: 07:24 Eye Response: spontaneous(4). Motor Response: obeys commands(6). Verbal Response: bm8 oriented(5). Total: 15. ED Course: 06:51 Patient arrived in ED. [id number] 07:01 Preston Cook MD is Attending Physician. rn 07:14 Triage completed. ha1 07:20 Taye Almeida, RN is Primary Nurse. bm8 07:22 Arm band placed on right wrist. bm8 07:24 Patient has correct armband on for positive identification. Bed in low position. Call bm8 light in reach. Client placed on continuous cardiac and pulse oximetry monitoring. NIBP monitoring applied. Pulse ox on. NIBP on. Door closed. Pillow given. Verbal reassurance given. Head of bed elevated. 07:24 No provider procedures requiring assistance completed. COVID swab sent to lab. Flu bm8 and/or RSV swab sent to lab. Strep swab sent to lab. Patient maintains SpO2 saturation greater than 95% on room air. 08:03 Patient did not have IV access during this emergency room visit. bp Administered Medications: No medications were administered Medication: 07:24 VIS not applicable for this client. bm8 Outcome: 07:49 Discharge ordered by . rn 08:03 Discharged to home ambulatory, with family, bp 08:03 Condition: stable 08:03 Discharge instructions given to patient, Instructed on discharge instructions, follow up and referral plans. medication usage, Demonstrated understanding of instructions, follow-up care, medications, Prescriptions given X 1, 08:03 Patient left the ED. bp Signatures: Preston Cook MD MD rn Peltier, Brian RN RN bp Libby Das [id number] Ariane Lynn RN RN ha1 Taye Almeida, REINA HUANG bm8
[2024-05-21 08:09] VITALS: BP 120/76; TEMP 98.3; O2SAT 100
== END 2024-05-21 08:03 | disposition home or self-care (01) ==
LOC: ER 06:49
DX: J02.0 Streptococcal pharyngitis (principal); Z11.52 Encounter for screening for COVID-19
CPT/HCPCS: 36415; 87428; 99284